=== PATIENT | male | born 1985 ===

== ENCOUNTER 2017-01-18 11:15 | Emergency (ER) | payer BC ==
[2017-01-18] MEDS ORDERED: fentaNYL 100 MCG/2 ML SDV ONE ×2 (11:26→12:09)
[2017-01-18] MEDS ORDERED: Ondansetron 4 MG/2 ML SDV ONE (11:30)
[2017-01-18 11:41] LABS: CHLORIDE,CL 101 mmol/L (98-107); SODIUM,NA 138 mmol/L (136-145)
[2017-01-18] MEDS ORDERED: fentaNYL 100 MCG/2 ML SDV IVPUSH ONE (12:53)
[2017-01-18] MEDS ORDERED: Sodium Chloride 0.9% 10 ML Syringe FLUSH PRN (13:25)
[2017-01-18] MEDS ORDERED: HYDROmorphone 1 MG/ML Syringe IVPUSH ONE (14:42)
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
[2017-01-18] MEDS ORDERED: Promethazine 25 MG/ML SDV IM ONE (14:49)
== END 2017-01-18 15:15 | disposition home or self-care (01) ==
LOC: LL.ED 11:15
DX: S01.111A Laceration without foreign body of right eyelid and periocular area, initial encounter (principal); S30.1XXA Contusion of abdominal wall, initial encounter; S80.12XA Contusion of left lower leg, initial encounter; V48.0XXA Car driver injured in noncollision transport accident in nontraffic accident, initial encounter; Y92.828 Other wilderness area as the place of occurrence of the external cause
CPT/HCPCS: 36415; 71010; 71260; 72100; 74177; 80053; 82150; 82550; 83605; 83690; 85025; 96372; 96374; 96375; 96376; 99285; J1170; J2405; J2550; J3010; Q9967